=== PATIENT | female | born 2005 | race Caucasian/White ===

== ENCOUNTER 2023-11-18 23:39 | Inpatient (IN) ==
[2023-11-18] MEDS ORDERED: OXYTOCIN 30 UNITS/NSS 30 UNITS/500 ML BAG IV PRN (23:57)
[2023-11-18] MEDS ORDERED: LIDOCAINE 1% LOCAL 20 ML VIAL INFIL PRN (23:57)
--- NOTE | 2023-11-19 00:07 | Labor Progress Brief Note ---
Date of Service November 19, 2023 Subjective Patient is a at 39w2d with ROM at home this evening. No ctx, no VB, good FM. GBS positive. Assessment & Plan (1) PROM (premature rupture of membranes): Plan: Discussed recommendations for pitocin as she is ruptured but nonlaboring. Agreeable. Epidural on request. PCN for GBS. Admission and Anticipated Discharge Date Admission Date: November 18, 2023 Physical Exam Genitourinary: /-2/soft/post Clear LOF obvious, and +nitrazine. FHT Cat 1 [place] quiet Results & Data Vital Signs (Past 12 Hours) Vital Signs Pulse BP 11/18/23 23:52 97 H 134/84 Coding Level of Care Code None Diagnoses PROM (premature rupture of membranes) O42.90
[2023-11-19 00:36] LABS: Hematocrit (blood only) 31.3 % (37.0-47.0); Hemoglobin 11.1 g/dl (12.0-16.0); Mean Corpuscular Hgb Conc 35.5 g/dL (32.0-36.0); Mean Corpuscular Volume 84.6 fL (80.0-100.0); Mean Platelet Volume 10.1 fL (9.4-12.4); Platelet Count 226 K/uL (130-400); RDW Coefficient of Variation 12.1 % (11.5-14.5); RDW Standard Deviation 36.9 fL (36.4-46.3); White Blood Count 9.31 K/ul (4.8-10.8)
[2023-11-19] MEDS: LACTATED RINGER'S 1,000 ML IV PRN (00:49)
[2023-11-19] MEDS: PENICILLIN GK 6 MU in DEXTROSE 5% 250 ML IV STA (01:03)
[2023-11-19] MEDS: OXYTOCIN 30 UNITS/NSS 30 UNITS/500 ML BAG IV PRN (01:08)
[2023-11-19] MEDS: PENICILLIN GK 3 MU in DEXTROSE 5% 100 ML IV PRN (04:54)
--- NOTE | 2023-11-19 05:15 | Anesthesiology Consultation ---
Date of Service November 19, 2023 Assessment & Plan (1) Encounter for pre-operative examination: Chart Review Chart Review: Acceptable Risk for Labor Epidural History Height/Weight Height: 5 ft 4 in Weight: 87.362 kg Allergies Allergy/AdvReac Type Severity Reaction Status Date / Time No Known Allergies Allergy Verified 11/18/23 14:35 Medications Home Medications Medication Instructions Recorded Confirmed Last Taken 21-iron fu-folic acid 1 tab PO DAILY 04/14/23 11/19/23 Unknown [ Complete] Active Medications Generic Name Dose Route Start Last Admin Trade Name Freq PRN Reason Stop Dose Admin Oxytocin 30 units in 500 mls @ 6 mls/hr 11/18/23 23:57 11/19/23 04:00 Pitocin 30 Units/Nss IV 11/20/23 23:56 0.36 units/hr .Q24H PRN 6 mls/hr Labor Induction/Augmentation Titration Protocol 0.36 UNITS/HR Lactated Ringer's 1,000 mls @ 125 mls/hr 11/18/23 23:57 11/19/23 00:49 Lr IV 11/20/23 23:56 125 mls/hr .Q8H PRN Administration L&D Protocol Protocol Penicillin G Potassium 3 mu/ 106 mls @ 100 mls/hr 11/19/23 02:57 11/19/23 04:54 Dextrose IV 11/29/23 02:56 100 mls/hr Q4H PRN Administration GBS(+) Until Delivery Past Medical History Medical History Varicella vaccination No known problems Past Family History Family History Denies family history of Ovarian cancer Breast cancer Colorectal cancer Uterine cancer Past Surgical History Surgical History S/P wisdom tooth extraction S/P adenoidectomy No history of previous surgery Social History Smoking Status: Never smoker Do You Dip or Chew Tobacco: No Hx Alcohol Use: No Hx Substance Use: No Physical Exam Vital Signs Last Vital Signs Temp 36.6 C 11/19/23 04:08 Pulse 80 11/19/23 04:08 Resp 18 11/19/23 04:08 BP 129/81 11/19/23 04:08 Testing Laboratory Results 11/19/23 00:06
[2023-11-19] MEDS: fentANYL 2 MCG/ML BUPIVacaine 0.125%-NSS 100ML BAG ONE (05:40)
[2023-11-19] MEDS ORDERED: BUPIVACAINE 0.25% PF 30 ML VIAL EPI PRN (05:41)
[2023-11-19] MEDS ORDERED: SODIUM CHLORIDE 0.9% PF INJ 10 ML VIAL EPI PRN (05:41)
[2023-11-19] MEDS ORDERED: ROPIVACAINE 0.5% PF 5 MG/ML 20 ML VIAL EPI PRN (05:41)
[2023-11-19] MEDS ORDERED: LIDOCAINE 2% MPF LOCAL 5 ML VIAL EPI PRN (05:41)
[2023-11-19] MEDS ORDERED: NALOXONE HCL 0.4 MG/1 ML VIAL/CARP IV PRN (05:41)
[2023-11-19] MEDS ORDERED: fentaNYL citrate PF 100 MCG/2 ML VIAL EPI PRN (05:41)
[2023-11-19] MEDS: fentaNYL citrate PF 100 MCG/2 ML VIAL ONE (05:41)
[2023-11-19] MEDS ORDERED: ePHEDrine sulfate 50 MG/ML AMP IV PRN (05:41)
[2023-11-19] MEDS ORDERED: NALOXONE HCL 1 MG in SODIUM CHLORIDE 0.9% 1,000 ML IV PRN (05:41)
[2023-11-19] MEDS: LIDOCAINE 2%/EPINEPHRINE 1:200,000 20 ML PF ONE (05:42)
[2023-11-19] MEDS: BUPIVACAINE 0.25% PF 30 ML VIAL ONE (05:42)
[2023-11-19] MEDS: ePHEDrine sulfate 50 MG/ML AMP ONE (06:35)
[2023-11-19] MEDS: fentaNYL citrate PF 100 MCG/2 ML VIAL EPI STA (06:36)
[2023-11-19] MEDS: BUPIVACAINE 0.25% PF 30 ML VIAL EPI STA (06:36)
[2023-11-19] MEDS: SODIUM CHLORIDE 0.9% PF INJ 10 ML VIAL EPI STA (06:36)
[2023-11-19] MEDS: LIDOCAINE 2%/EPINEPHRINE 1:200,000 20 ML PF EPI STA (06:36)
[2023-11-19] MEDS: SODIUM CHLORIDE 0.9% PF INJ 10 ML VIAL ONE (06:36)
--- NOTE | 2023-11-19 07:37 | Labor Progress Brief Note ---
Date of Service November 19, 2023 Subjective More cramping led to getting epidural. Now comfortable Assessment & Plan (1) PROM (premature rupture of membranes): Plan: PROM --> now IOL, continue epidural, pitocin, PCN for GBS, anticipate Admission and Anticipated Discharge Date Admission Date: November 18, 2023 Physical Exam Genitourinary: 80/-2 LOF clear continues [place] Q5 Pit @ 4 FHT Cat 1 Results & Data Vital Signs (Past 12 Hours) Vital Signs Temp Pulse Resp BP Pulse Ox 11/19/23 07:30 81 99 11/19/23 07:25 79 100 11/19/23 07:21 78 130/78 11/19/23 07:20 84 99 11/19/23 07:15 90 98 11/19/23 07:10 84 99 11/19/23 07:06 92 H 127/84 11/19/23 07:05 88 99 11/19/23 07:00 93 H 99 11/19/23 06:55 89 99 11/19/23 06:51 81 130/84 11/19/23 06:50 78 100 11/19/23 06:45 80 100 11/19/23 06:40 71 98 11/19/23 06:36 73 120/75 11/19/23 06:35 70 99 11/19/23 06:30 78 100 11/19/23 06:25 106 H 100 11/19/23 06:22 98 H 119/77 11/19/23 06:20 80 100 11/19/23 06:15 79 99 11/19/23 06:10 84 98 11/19/23 06:08 18 11/19/23 06:08 97.9 F 18 11/19/23 06:05 82 112/65 98 11/19/23 06:02 72 116/67 11/19/23 06:00 68 99 11/19/23 05:59 74 118/65 11/19/23 05:56 71 113/62 11/19/23 05:55 82 99 11/19/23 05:54 85 116/60 11/19/23 05:51 82 123/68 11/19/23 05:50 80 98 11/19/23 05:47 75 113/58 L 11/19/23 05:45 71 99 11/19/23 05:44 71 111/60 11/19/23 05:41 74 112/65 11/19/23 05:40 78 99 11/19/23 05:35 101 H 130/83 99 11/19/23 05:30 98 H 100 11/19/23 05:25 101 H 100 11/19/23 05:20 72 99 11/19/23 05:15 83 98 11/19/23 04:08 97.9 F 80 18 129/81 11/19/23 02:06 98.2 F 80 18 118/66 11/19/23 00:01 98.2 F 18 11/18/23 23:52 97 H 134/84 Coding Level of Care Code None Diagnoses PROM (premature rupture of membranes) O42.90
[2023-11-19] MEDS: ONDANSETRON INJ 2 MG/ML 2 ML VIAL IV PRN (08:32)
[2023-11-19] MEDS: fentANYL 2 MCG/ML BUPIVacaine 0.125%-NSS 100ML BAG EPI PRN (13:48)
[2023-11-19] MEDS ORDERED: ACETAMINOPHEN 325 MG TAB PO PRN (15:56)
[2023-11-19] MEDS ORDERED: HYDROCORTISONE ACETATE 25 MG SUPP PR PRN (15:56)
[2023-11-19] MEDS ORDERED: bisacodyL 10 MG SUPP PR PRN (15:56)
[2023-11-19] MEDS ORDERED: oxyCODONE/ACETAMINOPHEN 5mg/325mg TAB PO PRN (15:56)
[2023-11-19] MEDS ORDERED: OXYTOCIN 30 UNITS/NSS 30 UNITS/500 ML BAG IV PRN (15:56)
--- NOTE | 2023-11-19 16:01 | Delivery Summary ---
Vaginal Delivery Summary Date of Service November 19, 2023 Vaginal Delivery Summary , 1st Degree LAC (right labia) and 2nd Degree LAC (vaginal) Patient is a 18-year-old 1 P0 female who presented at 39-2/7 weeks with spontaneous rupture membranes. She required Pitocin augmentation of her labor. She received epidural analgesia which was effective. She progressed to complete with the urge to push. She pushed effectively over intact perineum for delivery of a viable male infant. After the head was delivered there was a tight nuchal cord encountered. It was clamped and cut prior to delivering the rest the infant. He was slow to respond to stimulation and he was further evaluated and treated on the baby bed. He was then crying and vigorous and moving all 4 limbs. Cord blood was obtained, and the placenta was expressed intact with a three-vessel cord. bleeding was controlled with dilute Pitocin and fundal massage. A second-degree vaginal laceration and first-degree right labial laceration were repaired with 3-0 chromic in the usual fashion. QBL is 167 mL. Mother and were doing well after delivery. [facility] [place] Charge Delivery Type Details: , 1st Degree LAC (right labia) and 2nd Degree LAC (vaginal)
--- NOTE | 2023-11-19 17:44 | Anesthesia Procedure Note ---
Date of Service November 19, 2023 Anesthesia Post Epidural Note Vital Signs Vital Signs: Temp Pulse Resp BP Pulse Ox 36.7 C 96 H 16 135/69 98 11/19/23 07:10 11/19/23 17:06 11/19/23 15:00 11/19/23 17:06 11/19/23 15:25 Pain Intensity Bilateral Abdomen: Pain Intensity: 3 Notes Mental Status: alert / awake / arousable and participated in evaluation Nausea / Vomiting: adequately controlled Pain: adequately controlled Airway Patency, RR, SpO2: stable & adequate BP & HR: stable & adequate Hydration State: stable & adequate Neuraxial Anesthesia: was administered and sensory block resolved Anesthetic Complications: no major complications apparent and Pt Satisfied with anesthetic care Epidural: Removed without complications and With tip intact
[2023-11-19 18:13] VITALS: RESP 18
[2023-11-19] MEDS: BENZOCAINE 20% SPRY 85 APPLN/85 GM CAN EXT PRN (19:55)
[2023-11-19] MEDS: DOCUSATE SODIUM 100 MG CAP PO SCH (22:24)
[2023-11-20 03:46] VITALS: TEMP 98.4; O2SAT 97
[2023-11-20 06:28] LABS: Hematocrit (blood only) 35.2 % (37.0-47.0); Hemoglobin 11.9 g/dl (12.0-16.0); Mean Corpuscular Hemoglobin 29.8 pg (25.0-34.0); Mean Corpuscular Hgb Conc 33.8 g/dL (32.0-36.0); Mean Platelet Volume 10.2 fL (9.4-12.4); Platelet Count 221 K/uL (130-400); RDW Coefficient of Variation 12.4 % (11.5-14.5); RDW Standard Deviation 39.6 fL (36.4-46.3); White Blood Count 13.16 K/ul (4.8-10.8)
--- NOTE | 2023-11-20 06:45 | Obstetrical Progress Note ---
Date of Service November 20, 2023 Assessment & Plan (1) Encounter for assessment: Plan: Patient is PPD 1 s/p and doing well - Eating well, voiding well, ambulating well - vitals reviewed and within normal limits - pain well controlled with analgesics - OOB, ambulation, diet progression as tolerated - Blood type: A+, GBS pos, rubella immune - Plan to discharge today - After discharge, 6 week follow up with OB Admission and Anticipated Discharge Date Admission Date: November 18, 2023 Supervising Physician Co-Signing Physician Notes Resident Physician Supervision Note: I interviewed and examined the patient. Discussed with Dr. Bolanos and agree with findings and plan as documented in the note. Any exceptions or clarifications are listed here: [None] Documented By: Hallie Melton MD, FACOG Subjective 18 yo post- day 1 s/p Ambulation: ambulating normally Voiding: no voiding problems Passing Gas:: Yes Diet Tolerance:: regular diet Lochia:: Small Feeding Type:: breast feeding Current Pain Level: 3-4/10 Resting comfortably this AM in NAD. Denies EDWARDS, CP, SOB, N/V/D, LE pain/swelling. Physical Exam Physical Exam: General: patient resting comfortably, NAD, non-toxic in appearance, answers questions appropriately. Skin: warm, dry, intact HEENT: NC/AT, anicteric sclera, conjunctiva without injection, moist mucus membranes. Heart: +S1/S2, regular, no m/r/g Lungs: equal air entry bilaterally, no rales/rhonchi/wheezes Abd: +BS, soft, NT/ND, uterine fundus firm at umbilicus Ext: warm, no clubbing/cyanosis or edema, Haylie's neg. Neuro: nonfocal, speech intact, no facial droop, moving all extremities. Results & Data Vital Signs (Past 12 Hours) Vital Signs Temp Pulse Resp BP Pulse Ox O2 Del Method 11/20/23 03:45 36.9 C 74 18 124/83 97 Room Air 11/19/23 23:45 36.7 C 74 18 136/87 98 Room Air 11/19/23 19:30 36.4 C L 77 18 124/79 98 Room Air Resident Activity Tracking Resident Involvement: Resident Care Provided Care Provided: OB Delivery (1) Encounter for assessment visit type: exam and care immediately after delivery Qualified Code(s): Z39.0 - Encounter for care and examination of mother immediately after delivery
[2023-11-20] MEDS: IBUPROFEN 600 MG TAB PO PRN (08:52)
[2023-11-20] MEDS: PRENATAL VITAMIN 1 TAB PO SCH (08:52)
[2023-11-20] MEDS: DIPHTHER/TETAN/PERTUS Vaccine (Tdap, Adol/Adult) 0.5mL IM ONE (08:54)
[2023-11-20 12:18] VITALS: BP 126/86; PULSE 69
[2023-11-20] MEDS ORDERED: bisacodyL 5 MG TABEC PO SCH (20:00)
== END 2023-11-20 18:25 | disposition home or self-care (01) | DRG 807 ==
LOC: OPB 23:39 → 4S1 23:41 → 4E2 11-19 18:23